=== PATIENT | male | born 2000 | race African-American/Black ===

== ENCOUNTER 2021-05-18 13:59 | Emergency (ER) | payer MEDICAID ==
[~2021-05-18] VITALS: Ht 190.5 cm; Wt 93.0 kg
[2021-05-18 14:19] VITALS: BP 128/67
--- NOTE | 2021-05-18 14:20 | NUR ---
URINE SAMPLE COLLECTED AND SENT TO LAB
--- NOTE | 2021-05-18 14:25 | NUR ---
Vickie espino in ED - 05/18/21 at 1504 by VIVEK JENNIFER SANCHEZ DURING TESTICULAR EXAM
--- NOTE | 2021-05-18 14:59 | NUR ---
CHAPERONED DR SANCHEZ DURING TESTICULAR EXAM
[2021-05-18] MEDS ORDERED: DOXY-326 PO (15:19)
[2021-05-18] MEDS ORDERED: LIDOCAINE /MPF 1% VIAL 5 ML VIAL ONE (15:28)
[2021-05-18] MEDS ORDERED: CEFTRIAXONE 1 G VIAL ONE (15:28)
[2021-05-18] MEDS ORDERED: LIDOCAINE HCL/PF 1% 30 ML VIAL IM ONE (15:30)
[2021-05-18] MEDS ORDERED: CEFTRIAXONE 500 MG VIAL IM ONE (15:30)
[2021-05-18 15:36] LABS: BILIRUBIN,URINE NEGATIVE (NEGATIVE); COLOR,URINE YELLOW (YELLOW); LEUKOCYTE ESTERASE ,URINE NEGATIVE (NEGATIVE); NITRITE, URINE NEGATIVE (NEGATIVE); PROTEIN,URINE NEGATIVE (NEGATIVE); UGLUCOSE NEGATIVE (NEGATIVE); UROBILINOGEN,URINE 0.2 EU/dL (0.2)
--- NOTE | 2021-05-18 15:42 | NUR ---
Patient discharged to home in stable condition. Written and verbal after care instructions given. Patient verbalizes understanding of instruction.
== END 2021-05-18 15:43 | disposition home or self-care (01) ==
LOC: ER 14:05
DX: N45.1 Epididymitis (principal); A64 Unspecified sexually transmitted disease
CPT/HCPCS: 81003; 87491; 87591; 96372; 99283; J0696; J3490 ×2